=== PATIENT | female | born 1985 | race Caucasian/White ===

== ENCOUNTER 2017-04-04 22:49 | Emergency (ER) | payer MEDICAID ==
[~2017-04-04] VITALS: Ht 154.9 cm; Wt 74.8 kg
[2017-04-04 23:12] LABS: BILIRUBIN,URINE NEGATIVE (NEG); GLUCOSE,URINE NEGATIVE (NEG); NITRITE,URINE NEGATIVE (NEG); PH,URINE 5.5; PROTEIN,URINE NEGATIVE (NEG-TRACE); UROBILINOGEN,URINE 0.2 mg/dL (0.2 mg/dL)
[2017-04-04 23:16] LABS: BASO # 0.1 x10^3/uL (0.0-0.2); BASO % 1 % (0-3); EOS % 1 % (0-3); HEMOGLOBIN 13.9 g/dL (12.0-15.5); LYMPH # 2.9 x10^3/uL (1.0-4.8); LYMPH % 33 % (24-48); MEAN CORPUSCULAR HEMOGLOBIN 27 pg (25-35); MEAN CORPUSCULAR HGB CONC 32 g/dL (31-37); MEAN CORPUSCULAR VOLUME 82 fL (79-100); MONO % 9 % (0-9); NEUT % 56 % (31-73); PLATELET COUNT 292 x10^3/uL (140-400); RED BLOOD COUNT 5.22 x10^6/uL (3.50-5.40); RED CELL DISTRIBUTION WIDTH 14.2 % (11.5-14.5)
[2017-04-04 23:18] LABS: BACTERIA,URINE 0 /HPF (0-FEW); RBC,URINE 0 /HPF (0-2); SQUAMOUS EPITHELIAL CELL,UR FEW /LPF
[2017-04-04 23:19] LABS: BARBITURATES NEG (NEG); BENZODIAZEPINES NEG (NEG); CANNABINOIDS NEG (NEG); COCAINE NEG (NEG); METHADONE NEG (NEG); OPIATES NEG (NEG); PHENCYCLIDINE NEG (NEG)
--- NOTE | 2017-04-04 23:23 | PHYS DOC ---
Past Medical History Past Medical History: Other Additional Past Medical Histor: "MY BLADDER FELL" Past Surgical History: Cholecystectomy, Hysterectomy Alcohol Use: Occasionally Drug Use: Marijuana Adult General Chief Complaint Chief Complaint: SEIZURE HPI HPI Patient is a 32 year old female who presents with complaint of seizure episode. Patient was brought to the emergency department by EMS shortly after having a seizure episode which they reported last approximately 30 seconds. The patient is currently at a detox center for treatment of methamphetamine abuse. Patient states that she has been at this facility over the past 18 days and has remained off of methamphetamine for approximately 20 days. The patient states that she has a seizure disorder which she suffers from as a result of a previous traumatic brain injury suffered many years ago. Patient states that she is supposed to be on Keppra therapy, however this medication is too expensive and she has not been taking it over the past several months. The patient states that she has currently secured Medicaid, however she is not receiving any prescription benefits at this time. She states that these are pending. The patient currently is having headache which she states is typical when she has a seizure episode but denies any other complaints. Patient denies any focal neurologic symptoms. The patient was brought to the emergency department by EMS from her detox center for evaluation and treatment. Review of Systems Review of Systems Constitutional: Denies fever or chills [] Eyes: Denies change in visual acuity, redness, or eye pain [] HENT: Denies nasal congestion or sore throat [] Respiratory: Denies cough or shortness of breath [] Cardiovascular: Denies chest pain or edema[] GI: Denies abdominal pain, nausea, vomiting, bloody stools or diarrhea [] : Denies dysuria or hematuria [] Musculoskeletal: Denies back pain or joint pain [] Integument: Denies rash or skin lesions [] Neurologic: Headache, denies focal weakness or sensory changes [] All other systems were reviewed and found to be within normal limits, except as documented in this note. Current Medications Current Medications Current Medications Medications (Trade) Dose Ordered Sig/Kylah Start Time Stop Time Status Last Admin Dose Admin Ketorolac Tromethamine (Toradol) 30 mg 1X ONCE 04/04/17 23:30 04/04/17 23:31 DC 04/04/17 23:26 30 MG Levetiracetam (Keppra) 500 mg 1X ONCE 04/05/17 00:00 04/05/17 00:01 04/04/17 23:30 500 MG Sodium Chloride 1,000 ml @ 1,000 mls/hr 1X ONCE 04/04/17 23:30 04/05/17 00:29 04/04/17 23:25 1,000 MLS/HR Allergies Allergies Allergies Coded Allergies Type Severity Reaction Last Updated Verified Sulfa (Sulfonamide Antibiotics) Allergy Severe 04/04/17 Yes Physical Exam Physical Exam Constitutional: Well developed, well nourished, no acute distress, non-toxic appearance. [] HENT: Normocephalic, atraumatic, bilateral external ears normal, oropharynx moist, no oral exudates, nose normal. [] Eyes: PERRLA, EOMI, conjunctiva normal, no discharge. [] Neck: Normal range of motion, no tenderness, supple, no stridor. [] Cardiovascular: Tachycardia, regular rhythm, no murmur [] Lungs & Thorax: Bilateral breath sounds clear to auscultation [] Abdomen: Bowel sounds normal, soft, no tenderness, no masses, no pulsatile masses. [] Skin: Warm, dry, no erythema, no rash. [] Back: No tenderness, no CVA tenderness. [] Extremities: No tenderness, no cyanosis, no clubbing, ROM intact, no edema. [] Neurologic: Alert and oriented X 3, normal motor function, normal sensory function, no focal deficits noted. [] Current Patient Data Vital Signs Vital Signs Date Time Temp Pulse Resp B/P (MAP) Pulse Ox O2 Delivery O2 Flow Rate FiO2 04/04/17 22:55 98.2 95 10 107/52 (70) 100 Room Air 98.2 Lab Values Laboratory Tests Test 04/04/17 22:55 04/04/17 22:57 White Blood Count 9.0 x10^3/uL (4.0-11.0) Red Blood Count 5.22 x10^6/uL (3.50-5.40) Hemoglobin 13.9 g/dL (12.0-15.5) Hematocrit 43.0 % (36.0-47.0) Mean Corpuscular Volume 82 fL (79-100) Mean Corpuscular Hemoglobin 27 pg (25-35) Mean Corpuscular Hemoglobin Concent 32 g/dL (31-37) Red Cell Distribution Width 14.2 % (11.5-14.5) Platelet Count 292 x10^3/uL (140-400) Neutrophils (%) (Auto) 56 % (31-73) Lymphocytes (%) (Auto) 33 % (24-48) Monocytes (%) (Auto) 9 % (0-9) Eosinophils (%) (Auto) 1 % (0-3) Basophils (%) (Auto) 1 % (0-3) Neutrophils # (Auto) 5.0 x10^3uL (1.8-7.7) Lymphocytes # (Auto) 2.9 x10^3/uL (1.0-4.8) Monocytes # (Auto) 0.8 x10^3/uL (0.0-1.1) Eosinophils # (Auto) 0.1 x10^3/uL (0.0-0.7) Basophils # (Auto) 0.1 x10^3/uL (0.0-0.2) Urine Collection Type Unknown Urine Color Yellow Urine Clarity Cloudy Urine pH 5.5 Urine Specific [place] 1.010 Urine Protein Negative mg/dL (NEG-TRACE) Urine Glucose (UA) Negative mg/dL (NEG) Urine Ketones (Stick) Negative mg/dL (NEG) Urine Blood Negative (NEG) Urine Nitrite Negative (NEG) Urine Bilirubin Negative (NEG) Urine Urobilinogen Dipstick 0.2 mg/dL (0.2 mg/dL) Urine Leukocyte Esterase Small (NEG) Urine RBC 0 /HPF (0-2) Urine WBC 1-4 /HPF (0-4) Urine Squamous Epithelial Cells Few /LPF Urine Bacteria 0 /HPF (0-FEW) Urine Mucus Slight /LPF Sodium Level 140 mmol/L (136-145) Potassium Level 4.0 mmol/L (3.5-5.1) Chloride Level 102 mmol/L (98-107) Carbon Dioxide Level 28 mmol/L (21-32) Anion Gap 10 (6-14) Blood Urea Nitrogen 13 mg/dL (7-20) Creatinine 0.7 mg/dL (0.6-1.0) Estimated GFR (Cockcroft-Gault) 97.0 Glucose Level 92 mg/dL (70-99) Calcium Level 9.1 mg/dL (8.5-10.1) Magnesium Level 2.0 mg/dL (1.8-2.4) Urine Opiates Screen Neg (NEG) Urine Methadone Screen Neg (NEG) Urine Barbiturates Neg (NEG) Urine Phencyclidine Screen Neg (NEG) Urine Amphetamine/Methamphetamine Neg (NEG) Urine Benzodiazepines Screen Neg (NEG) Urine Cocaine Screen Neg (NEG) Urine Cannabinoids Screen Neg (NEG) Urine Ethyl Alcohol Neg (NEG) POC Urine HCG, Qualitative Hcg negative (Negative) Laboratory Tests 04/04/17 22:55 Laboratory Tests 04/04/17 22:55 EKG EKG Not performed[] Radiology/Procedures Radiology/Procedures Not performed[] Course & Med Decision Making Course & Med Decision Making Pertinent Labs and Imaging studies reviewed. (See chart for details) Patient was given IV fluids and IV Toradol in the emergency department with improvement in symptoms. The patient states that she is going to call the phone number for her Medicaid coverage to discuss securing her Keppra medication which she will need to continue on for her seizure disorder. The patient states that she has an active prescription at a local pharmacy and does not require an additional written prescription at this time. Patient was given an oral dose of Keppra in the emergency department. Recommended neurology follow-up in one to 2 weeks for reevaluation and recommended return emergency department for any worsening symptoms. Patient voiced understanding and in agreement with treatment plan. Dragon Disclaimer Dragon Disclaimer This electronic medical record was generated, in whole or in part, using a voice recognition dictation system. Departure Departure Impression: Primary Impression: Seizure disorder Disposition: HOME, SELF-CARE Condition: IMPROVED Referrals: NO PCP (PCP) Patient Instructions: Seizure, Adult Additional Instructions: Follow-up with Dr. Matson of neurology in the next 1-2 weeks for reevaluation. Return to emergency department for any worsening symptoms. MANUELITO JAY MD Apr 04, 2017 23:23
[2017-04-04 23:26] LABS: CALCIUM 9.1 mg/dL (8.5-10.1); CREATININE 0.7 mg/dL (0.6-1.0)
[2017-04-04] MEDS ORDERED: KETOROLAC 30 MG/ML INJ. IV ONE (23:30)
[2017-04-04] MEDS ORDERED: IV NORMAL SALINE 1000ML BAG 1,000 ML IV ONE (23:30)
[2017-04-05] VITALS: BP 96/52
[2017-04-05] MEDS ORDERED: levETIRAcetam 500 MG TABLET PO ONE
== END 2017-04-05 00:18 | disposition home or self-care (01) ==
LOC: ER 22:49
DX: G40.909 Epilepsy, unspecified, not intractable, without status epilepticus (principal); F12.10 Cannabis abuse, uncomplicated; F15.10 Other stimulant abuse, uncomplicated; Z90.49 Acquired absence of other specified parts of digestive tract; Z90.710 Acquired absence of both cervix and uterus; Z79.899 Other long term (current) drug therapy; Z87.820 Personal history of traumatic brain injury; Z88.2 Allergy status to sulfonamides
CPT/HCPCS: 36415; 80048; 80307; 81001; 81025; 83735; 85025; 87086; 96361; 96374; 99284; J1885; J7030; G0479

== ENCOUNTER 2017-04-07 23:48 | Emergency (ER) | payer MEDICAID ==
--- NOTE | 2017-04-07 23:56 | PHYS DOC ---
Past Medical History Past Medical History: Seizure, Other Additional Past Medical Histor: "MY BLADDER FELL", TBI Past Surgical History: Cholecystectomy, Hysterectomy Alcohol Use: None Drug Use: Marijuana, Methamphetamine Adult General Chief Complaint Chief Complaint: itching HPI HPI Patient is a 32 year old female who presents with itching on her chest and arms. She states she started a new medicine on Friday called John for depression. Otherwise she is on Keppra for seizure disorder. She states she' s been on Keppra for longtime the same medicine. She states that she feels mild throat itching but denies any shortness of breath or wheezing. She denies any trouble swallowing. Review of Systems Review of Systems Constitutional: Denies fever or chills [] Eyes: Denies change in visual acuity, redness, or eye pain [] HENT: Denies nasal congestion or sore throat [] Respiratory: Denies cough or shortness of breath [] Cardiovascular: No additional information not addressed in HPI [] GI: Denies abdominal pain, nausea, vomiting, bloody stools or diarrhea [] : Denies dysuria or hematuria [] Musculoskeletal: Denies back pain or joint pain [] Integument: Denies rash or skin lesions [] Neurologic: Denies headache, focal weakness or sensory changes [] Endocrine: Denies polyuria or polydipsia [] All other systems were reviewed and found to be within normal limits, except as documented in this note. Current Medications Current Medications Current Medications Medications (Trade) Dose Ordered Sig/Kylah Start Time Stop Time Status Last Admin Dose Admin Diphenhydramine HCl (Benadryl) 25 mg 1X ONCE 04/08/17 00:15 04/08/17 00:16 DC 04/08/17 00:03 25 MG Famotidine (Pepcid) 20 mg 1X ONCE 04/08/17 00:15 04/08/17 00:16 DC 04/08/17 00:04 20 MG Prednisone (Prednisone) 50 mg 1X ONCE 04/08/17 00:15 04/08/17 00:16 DC 04/08/17 00:04 50 MG Allergies Allergies Allergies Coded Allergies Type Severity Reaction Last Updated Verified Sulfa (Sulfonamide Antibiotics) Allergy Severe 04/04/17 Yes Physical Exam Physical Exam Constitutional: Well developed, well nourished, no acute distress, non-toxic appearance. [] HENT: Normocephalic, atraumatic, bilateral external ears normal, oropharynx moist, no oral exudates, nose normal. [] Eyes: PERRLA, EOMI, conjunctiva normal, no discharge. [] Neck: Normal range of motion, no tenderness, supple, no stridor. [] Cardiovascular:Heart rate regular rhythm, no murmur [] Lungs & Thorax: Bilateral breath sounds clear to auscultation [] Abdomen: Bowel sounds normal, soft, no tenderness, no masses, no pulsatile masses. [] Skin: Warm, dry, no erythema, no rash. [] Back: No tenderness, no CVA tenderness. [] Extremities: No tenderness, no cyanosis, no clubbing, ROM intact, no edema. [] Neurologic: Alert and oriented X 3, normal motor function, normal sensory function, no focal deficits noted. [] Psychologic: Affect normal, judgement normal, mood normal. [] Current Patient Data Vital Signs Vital Signs Date Time Temp Pulse Resp B/P (MAP) Pulse Ox O2 Delivery O2 Flow Rate FiO2 04/08/17 00:09 98.1 87 18 98 Room Air 98.1 04/07/17 23:55 130/74 (92) EKG EKG [] Radiology/Procedures Radiology/Procedures [] Impressions: Allergic reaction Course & Med Decision Making Course & Med Decision Making Pertinent Labs and Imaging studies reviewed. (See chart for details) Patient presents with itching and redness of her chest and arms. She received Benadryl Pepcid and prednisone and was watched for approximately 1+ hours and her symptoms have dramatically improved. She does not have any stridor she's not complaining of her itching of her throat or other concerns. She's being discharged home. She is agreeable to the plan. Return precautions given. Dragon Disclaimer Dragon Disclaimer This electronic medical record was generated, in whole or in part, using a voice recognition dictation system. Departure Departure Impression: Primary Impression: Allergic reaction Disposition: 01 HOME, SELF-CARE Condition: STABLE Referrals: NO PCP (PCP) Patient Instructions: Hives, [id number] Additional Instructions: You were seen today for itching and a rash on your skin after he started your new medicine for depression. I recommend that he stop taking this medicine as it could be causing your hives. You will need to continue taking prednisone at home for the next 4 days in addition you can take [id number] Benadryl and Pepcid AC. If you have any troubles breathing, or rashes worse, you have troubles swallowing, your voice changes we have other concerns please return back to emergency department. Scripts Prednisone (PREDNISONE) 50 Mg Tablet 1 TAB PO DAILY, #4 TAB Prov: JENS MEDELLIN MD 04/08/17 JENS MEDELLIN MD Apr 07, 2017 23:56
[2017-04-08] MEDS ORDERED: predniSONE 20 MG TABLET PO ONE (00:15)
[2017-04-08] MEDS ORDERED: diphenhydrAMINE HCL 25 MG CAPSULE PO ONE (00:15)
[2017-04-08] MEDS ORDERED: FAMOTIDINE 20 MG TABLET. PO ONE (00:15)
[2017-04-08] MEDS ORDERED: PRED50TA PO (01:02)
[2017-04-08 01:15] VITALS: BP 118/66
== END 2017-04-08 01:15 | disposition home or self-care (01) ==
LOC: ER 23:48
DX: T78.40XA Allergy, unspecified, initial encounter (principal); G40.909 Epilepsy, unspecified, not intractable, without status epilepticus; Z88.2 Allergy status to sulfonamides
CPT/HCPCS: 99284; J7512; Q0163

== ENCOUNTER 2017-04-12 22:08 | Emergency (ER) | payer MEDICAID ==
[~2017-04-12] VITALS: Ht 165.1 cm; Wt 104.3 kg
[~2017-04-12 22:08] MED LIST: PRED50TA PO
--- NOTE | 2017-04-12 22:26 | PHYS DOC ---
Past Medical History Past Medical History: Abscess, Seizure, Other Additional Past Medical Histor: "MY BLADDER FELL", TBI Past Surgical History: Cholecystectomy, Hysterectomy Alcohol Use: None Drug Use: Marijuana, Methamphetamine Adult General Chief Complaint Chief Complaint: SEIZURE HPI HPI Patient is a 32 year old female who presents with seizure disorder. According patient she is from [place] and homeless currently staying at [facility]. She's been out of her seizure meds for several days secondary to financial reasons. She states she has insurance but her prescription plan has been frozen and she has spoke with people and at this time since she's in [place] she cannot get results and she goes back to [place]. She had a brief seizure tonight that lasted for 45 second. She was postictal for 1-2 minutes per EMS. She was alert and oriented 3 for EMS afterwards. She presents to ER with no complaints at this time. She states she's been stressed out because she is trying to back to [place] and has a train ride on Friday. She states she has no money to afford any medicines. She denies any fevers chills nausea or vomiting. Review of Systems Review of Systems Constitutional: Denies fever or chills [] Eyes: Denies change in visual acuity, redness, or eye pain [] HENT: Denies nasal congestion or sore throat [] Respiratory: Denies cough or shortness of breath [] Cardiovascular: No additional information not addressed in HPI [] GI: Denies abdominal pain, nausea, vomiting, bloody stools or diarrhea [] : Denies dysuria or hematuria [] Musculoskeletal: Denies back pain or joint pain [] Integument: Denies rash or skin lesions [] Neurologic: Denies headache, focal weakness or sensory changes [] Endocrine: Denies polyuria or polydipsia [] All other systems were reviewed and found to be within normal limits, except as documented in this note. Current Medications Current Medications Current Medications Medications (Trade) Dose Ordered Sig/Kylah Start Time Stop Time Status Last Admin Dose Admin Levetiracetam (Keppra) 500 mg 1X ONCE 04/12/17 23:15 04/12/17 23:16 DC 04/12/17 23:24 500 MG Sodium Chloride 1,000 ml @ 1,000 mls/hr 1X ONCE 04/12/17 22:30 04/12/17 23:29 DC Allergies Allergies Allergies Coded Allergies Type Severity Reaction Last Updated Verified Sulfa (Sulfonamide Antibiotics) Allergy Severe 04/04/17 Yes Physical Exam Physical Exam Constitutional: Well developed, well nourished, no acute distress, non-toxic appearance. [] HENT: Normocephalic, atraumatic, bilateral external ears normal, oropharynx moist, no oral exudates, nose normal. [] Eyes: PERRLA, EOMI, conjunctiva normal, no discharge. [] Neck: Normal range of motion, no tenderness, supple, no stridor. [] Cardiovascular:Heart rate regular rhythm, no murmur [] Lungs & Thorax: Bilateral breath sounds clear to auscultation [] Abdomen: Bowel sounds normal, soft, no tenderness, no masses, no pulsatile masses. [] Skin: Warm, dry, no erythema, no rash. [] Back: No tenderness, no CVA tenderness. [] Extremities: No tenderness, no cyanosis, no clubbing, ROM intact, no edema. [] Neurologic: Alert and oriented X 3, normal motor function, normal sensory function, no focal deficits noted. [] Psychologic: Affect normal, judgement normal, mood normal. [] Current Patient Data Vital Signs Vital Signs Date Time Temp Pulse Resp B/P (MAP) Pulse Ox O2 Delivery O2 Flow Rate FiO2 04/12/17 22:55 96 18 99 04/12/17 22:09 98.4 125/68 (87) Room Air 98.4 Lab Values Laboratory Tests Test 04/12/17 22:18 04/12/17 22:30 04/12/17 23:20 POC Urine HCG, Qualitative Hcg negative (Negative) Glucose (Fingerstick) 85 mg/dL (70-99) White Blood Count 9.5 x10^3/uL (4.0-11.0) Red Blood Count 4.93 x10^6/uL (3.50-5.40) Hemoglobin 13.3 g/dL (12.0-15.5) Hematocrit 40.8 % (36.0-47.0) Mean Corpuscular Volume 83 fL (79-100) Mean Corpuscular Hemoglobin 27 pg (25-35) Mean Corpuscular Hemoglobin Concent 33 g/dL (31-37) Red Cell Distribution Width 14.3 % (11.5-14.5) Platelet Count 237 x10^3/uL (140-400) Neutrophils (%) (Auto) 60 % (31-73) Lymphocytes (%) (Auto) 31 % (24-48) Monocytes (%) (Auto) 8 % (0-9) Eosinophils (%) (Auto) 1 % (0-3) Basophils (%) (Auto) 1 % (0-3) Neutrophils # (Auto) 5.7 x10^3uL (1.8-7.7) Lymphocytes # (Auto) 2.9 x10^3/uL (1.0-4.8) Monocytes # (Auto) 0.7 x10^3/uL (0.0-1.1) Eosinophils # (Auto) 0.1 x10^3/uL (0.0-0.7) Basophils # (Auto) 0.1 x10^3/uL (0.0-0.2) Laboratory Tests 04/12/17 23:20 EKG EKG [] Radiology/Procedures Radiology/Procedures [] Impressions: Seizure disorder Course & Med Decision Making Course & Med Decision Making Pertinent Labs and Imaging studies reviewed. (See chart for details) Patient has been in the emergency department for greater than 2 hours and have not had another seizure. She did receive 500 of Keppra. She has prescription for Keppra at her pharmacy but can't afford it since his $300. She is working out her prescription plan with her insurance currently. She is going back to [place] on Friday which is 2 days from now. Her labs do not show any acute abnormality's. She's being discharged back to her snf. Return precautions given. Dragon Disclaimer Romeliaon Disclaimer This electronic medical record was generated, in whole or in part, using a voice recognition dictation system. Departure Departure Impression: Primary Impression: Seizure Disposition: 01 HOME, SELF-CARE Condition: STABLE Referrals: NO PCP (PCP) Patient Instructions: Seizure Disorder, Child, Generalized Tonic-Clonic Additional Instructions: You were seen today for your seizure disorder. You were restarted on her medicines. Your being discharged home. You being sent home with a prescription for Keppra based on what he told me her on before. Return the ER if you have high fevers, neck stiffness, confusion, or other concerns. Scripts Levetiracetam (KEPPRA) 500 Mg Tablet 500 MG PO BID for 30 Days, #60 TAB Prov: JENS MEDELLIN MD 04/12/17 JENS MEDELLIN MD Apr 12, 2017 22:26
[2017-04-12] MEDS ORDERED: IV NORMAL SALINE 1000ML BAG 1,000 ML IV ONE (22:30)
[2017-04-12] MEDS ORDERED: levETIRAcetam 500 MG TABLET PO ONE (23:15)
[2017-04-12] MEDS ORDERED: LEVE500T56 PO (23:31)
[2017-04-12 23:40] LABS: BASO # 0.1 x10^3/uL (0.0-0.2); BASO % 1 % (0-3); EOS % 1 % (0-3); HEMATOCRIT 40.8 % (36.0-47.0); HEMOGLOBIN 13.3 g/dL (12.0-15.5); LYMPH # 2.9 x10^3/uL (1.0-4.8); LYMPH % 31 % (24-48); MEAN CORPUSCULAR HEMOGLOBIN 27 pg (25-35); MEAN CORPUSCULAR HGB CONC 33 g/dL (31-37); MEAN CORPUSCULAR VOLUME 83 fL (79-100); MONO % 8 % (0-9); NEUT % 60 % (31-73); PLATELET COUNT 237 x10^3/uL (140-400); RED BLOOD COUNT 4.93 x10^6/uL (3.50-5.40); RED CELL DISTRIBUTION WIDTH 14.3 % (11.5-14.5); WHITE BLOOD COUNT 9.5 x10^3/uL (4.0-11.0)
[2017-04-12 23:57] LABS: CALCIUM 8.8 mg/dL (8.5-10.1); CREATININE 0.8 mg/dL (0.6-1.0); GFR 83.1; POTASSIUM 4.4 mmol/L (3.5-5.1)
[2017-04-13 00:11] LABS: ALBUMIN 3.7 g/dL (3.4-5.0); TOTAL BILIRUBIN 0.3 mg/dL (0.2-1.0); TOTAL PROTEIN 7.3 g/dL (6.4-8.2)
[2017-04-13 00:14] VITALS: BP 113/64
== END 2017-04-13 00:16 | disposition home or self-care (01) ==
LOC: ER 22:08
DX: G40.909 Epilepsy, unspecified, not intractable, without status epilepticus (principal); F12.10 Cannabis abuse, uncomplicated; F15.10 Other stimulant abuse, uncomplicated; Z59.0 Homelessness; Z88.2 Allergy status to sulfonamides
CPT/HCPCS: 36415; 80053; 81025; 82962; 83605; 85025; 99284